=== PATIENT | male | born 1980 | race Caucasian/White ===

== ENCOUNTER 2020-10-18 13:04 | Emergency (ER) | payer OTHER, BC ==
[~2020-10-18] VITALS: Ht 182.9 cm; Wt 93.0 kg
[2020-10-18 13:09] VITALS: Ht 182.9 cm; Wt 93.0 kg
[2020-10-18 13:52] LABS: BASOPHIL % 1.8 % (0.2-1.5); PLATELET COUNT 223 x10^3mcL (152-348); RED CELL DISTRIBUTION WIDTH 13.9 % (12.1-16.2)
[2020-10-18 14:12] LABS: CALCIUM 9.3 mg/dL (8.5-10.1); CARBON DIOXIDE 27.6 mmol/L (21-32); CHLORIDE SERUM 98 mmol/L (98-107); CREATININE SERUM 1.1 mg/dL (0.7-1.3); GFR1 > 60 mL/min; GLUCOSE SERUM 110 mg/dL (74-106); SODIUM SERUM 134 mmol/L (136-145)
[2020-10-18 14:43] VITALS: BP 120/72
== END 2020-10-18 15:20 | disposition home or self-care (01) ==
LOC: ED 13:04
PROVIDERS: Emergency Medicine
DX: R55 Syncope and collapse (principal); I10 Essential (primary) hypertension